=== PATIENT | female | born 1975 | race Caucasian/White ===

== ENCOUNTER → 2016-06-01 | Outpatient (CLI) | payer OTHER | LOC: FIMAGING 13:22 | DX: Z12.31 Encounter for screening mammogram for malignant neoplasm of breast (principal) | CPT/HCPCS: G0202 ==

== ENCOUNTER 2016-06-25 08:55 | Emergency (ER) | payer OTHER ==
--- NOTE | 2016-06-25 09:03 | UCPHY ---
H & P Patient Type: New Time Seen by Provider: 06/25/16 09:02 HPI/ROS: CHIEF COMPLAINT: Crampy abdominal pain, bloody diarrhea HISTORY OF PRESENT ILLNESS: The patient presents to the urgent care with complaints of crampy abdominal pain and bloody diarrhea. The patient's symptoms of diarrhea have been increasing over the past several days. She noticed blood her stool yesterday. She had a small amount blood in her stool today. The patient has been having generalized abdominal cramping with her bowel movements. She reports having diarrhea at every time she eats or drinks. The patient denies recent antibiotic use, travel outside the [place] or contact with other people who were sick with similar symptoms. The patient reports her abdominal pain and cramping is moderate in nature. She denies dysuria. She denies significant history of abdominal surgery or significant past medical history. REVIEW OF SYSTEMS: A comprehensive 10 point review of systems is otherwise negative aside from elements mentioned in the history of present illness. Source: Patient Exam Limitations: No limitations - Medical/Surgical History PMH: Past medical history: Noncontributory - Family History Significant Family History: No pertinent family hx - Social History Smoking Status: Never smoked - Physical Exam Exam: General Appearance: Alert, no distress Eyes: Pupils equal and round no pallor or injection ENT, Mouth: Mucous membranes moist Respiratory: There are no retractions, lungs are clear to auscultation Cardiovascular: Regular rate and rhythm Gastrointestinal: Tenderness to palpation in the right upper quadrant, normal bowel sounds, no peritoneal signs Neurological: A&O, normal motor function, normal sensory exam, normal cranial nerves Skin: Warm and dry, no rashes Musculoskeletal: Neck is supple nontender Extremities: symmetrical, full range of motion Constitutional: Initial Vital Signs Temperature (C) 37 C 06/25/16 09:01 Heart Rate 110 H 06/25/16 09:01 Respiratory Rate 16 06/25/16 09:01 Blood Pressure 109/75 06/25/16 09:01 O2 Sat (%) 100 06/25/16 09:01 O2 Delivery Mode Room Air Allergies/Adverse Reactions: No Known Allergies Allergy (Verified 06/25/16 09:01) Home Medications: Medication Instructions Recorded Levothyroxine 06/25/16 Medical Decision Making - Diagnostics Imaging Results: Imaging Impressions Abdomen Ultrasound 06/25/16 09:11 Impression: Normal right upper quadrant ultrasound. Findings discussed with Eric Sarmiento 06/25/2016 at 1002. ED Course/Re-evaluation: The patient presents to the ED with several days of diarrhea with questionable mild hematochezia. The patient is noted to have tenderness to palpation in the right upper quadrant. The patient has no evidence of an acute abdomen. The patient did have an IV established. She received a L of normal saline. Based upon her right upper quadrant tenderness, and ultrasound of the right upper quadrant was ordered. The patient's right upper quadrant ultrasound is within normal limits. The patient's laboratory studies are also unremarkable. We have obtained a stool specimen. The patient's stool will be sent for a GI pathogen PCR which should be available in the next 24 hours. I will withhold antibiotics pending the results of that analysis. The patient will be discharged home with instructions to use Imodium for diarrhea and Zofran as needed for nausea. She should return to the ED for markedly worsening pain or other concerns. Differential Diagnosis: Differential diagnosis considered includes cholecystitis, pancreatitis, gastroenteritis, dysentery - Data Points Laboratory Results: Laboratory Results 06/25/16 09:15 06/25/16 09:15 06/25/16 06/25/16 06/25/16 09:15 09:15 09:15 WBC 9.77 10^3/uL H 10^3/uL (3.80-9.50) RBC 5.27 10^6/uL 10^6/uL (4.18-5.33) Hgb 14.7 g/dL g/dL (12.6-16.3) Hct 42.6 % % (38.0-47.0) MCV 80.8 fL L fL (81.5-99.8) MCH 27.9 pg pg (27.9-34.1) MCHC 34.5 g/dL g/dL (32.4-36.7) RDW 12.8 % % (11.5-15.2) Plt Count 235 10^3/uL 10^3/uL (150-400) MPV 10.9 fL fL (8.7-11.7) Neut % (Auto) 84.3 % H % (39.3-74.2) Lymph % (Auto) 9.8 % L % (15.0-45.0) [place] % (Auto) 4.9 % % (4.5-13.0) Eos % (Auto) 0.5 % L % (0.6-7.6) Baso % (Auto) 0.2 % L % (0.3-1.7) Nucleat RBC Rel Count 0.0 % % (0.0-0.2) Absolute Neuts (auto) 8.23 10^3/uL H 10^3/uL (1.70-6.50) Absolute Lymphs (auto) 0.96 10^3/uL L 10^3/uL (1.00-3.00) Absolute Monos (auto) 0.48 10^3/uL 10^3/uL (0.30-0.80) Absolute Eos (auto) 0.05 10^3/uL 10^3/uL (0.03-0.40) Absolute Basos (auto) 0.02 10^3/uL 10^3/uL (0.02-0.10) Absolute Nucleated RBC 0.00 10^3/uL 10^3/uL (0-0.01) Immature Gran % 0.3 % % (0.0-1.1) Immature Gran # 0.03 10^3/uL 10^3/uL (0.00-0.10) Sodium 136 mEq/L mEq/L (134-144) Potassium 4.0 mEq/L mEq/L (3.5-5.2) Chloride 100 mEq/L mEq/L (97-110) Carbon Dioxide 18 mEq/l L mEq/l (22-31) Anion Gap 18 mEq/L H mEq/L (8-16) BUN 14 mg/dL mg/dL (7-23) Creatinine 0.6 mg/dL mg/dL (0.6-1.0) Estimated GFR > 60 Glucose 76 mg/dL mg/dL (70-100) Calcium 9.3 mg/dL mg/dL (8.5-10.4) Total Bilirubin 1.0 mg/dL mg/dL (0.1-1.4) Conjugated Bilirubin 0.1 mg/dL mg/dL (0.0-0.5) Unconjugated Bilirubin 0.9 mg/dL mg/dL (0.0-1.1) AST 20 IU/L IU/L (14-46) ALT 25 IU/L IU/L (9-52) Alkaline Phosphatase 71 IU/L IU/L (38-126) Total Protein 7.0 g/dL g/dL (6.3-8.2) Albumin 4.0 g/dL g/dL (3.5-5.0) Lipase 128.0 IU/L IU/L (23-300) Beta HCG, Qual NEGATIVE Medications Given: Discontinued Medications Sodium Chloride (Ns) 1,000 mls @ 0 mls/hr IV ONCE ONE PRN Reason: Wide Open Stop: 06/25/16 09:12 Last Admin: 06/25/16 09:15 Dose: 1,000 mls Departure - Departure Disposition: Home, Routine, Self-Care Clinical Impression: Diarrhea, Abdominal pain Condition: Good Instructions: Acute Diarrhea (ED) Additional Instructions: 1. Please use Imodium for diarrhea. 2. Zofran as needed for nausea. 3.Sometimes we are unable to diagnose an obvious cause of abdominal pain in the Emergency Department. Based upon our evaluation today, I believe your symptoms are most likely secondary to a viral intestinal infection. Because more serious conditions can be difficult to diagnose early in the course of their presentation, we ask that you return to the Emergency Department in 8-12 hours for a recheck if you are still having pain. This is necessary to exclude the development of a more serious condition such as appendicitis or other intra- abdominal emergency. In the event your pain markedly increases before that time or you develop intractable vomiting or fever return to the Emergency Department immediately. 4. Please contact the Urgent Care tomorrow to check the results of your stool test and see if antibiotics are indicated. The telephone number is . Referrals: Jazzmine Dasilva MD [Medical Doctor] - As per Instructions - PQRS PQRS Measurement: N/A
[2016-06-25] MEDS ORDERED: NS 1,000 ML IV ONE (09:11)
[2016-06-25 09:29] LABS: % IMMATURE GRANULYOCYTES 0.3 % (0.0-1.1); ABSOLUTE IMMATURE GRANULOCYTES 0.03 10^3/uL (0.00-0.10); ADD DIFF? NO; ADD MORPH? NO; ADD SCAN? NO; ATYPICAL LYMPHOCYTE FLAG 50 (0-99); FRAGMENT RBC FLAG 0 (0-99); HEMATOCRIT 42.6 % (38.0-47.0); HEMOGLOBIN 14.7 g/dL (12.6-16.3); LEFT SHIFT FLG 0 (0-99); LIPEMIA HEMOLYSIS FLAG 90 (0-99); MEAN CELL HEMOGLOBIN 27.9 pg (27.9-34.1); MEAN CELL HEMOGLOBIN CONCENTR. 34.5 g/dL (32.4-36.7); MEAN CELL VOLUME 80.8 fL (81.5-99.8); MEAN PLATELET VOLUME 10.9 fL (8.7-11.7); PLATELET CLUMPS FLAG 10 (0-99); PLATELET COUNT 235 10^3/uL (150-400); RED BLOOD CELL COUNT 5.27 10^6/uL (4.18-5.33); RED CELL DISTRIBUTION WIDTH 12.8 % (11.5-15.2)
[2016-06-25 09:43] LABS: ALANINE AMINOTRANSFERASE 25 IU/L (9-52); ALKALINE PHOSPHATASE 71 IU/L (38-126); ANION GAP 18 mEq/L (8-16); ASPARTATE AMINOTRANSFERASE 20 IU/L (14-46); BILIRUBIN-CONJUGATED 0.1 mg/dL (0.0-0.5); BILIRUBIN-UNCONJUGATED 0.9 mg/dL (0.0-1.1); CALCIUM 9.3 mg/dL (8.5-10.4); CARBON DIOXIDE 18 mEq/l (22-31); CHLORIDE 100 mEq/L (97-110); CREATININE 0.6 mg/dL (0.6-1.0); GLOMERULAR FILTRATION RATE > 60; GLUCOSE 76 mg/dL (70-100); SODIUM 136 mEq/L (134-144)
[2016-06-25 11:15] VITALS: BP 107/63; PULSE 87; RESP 15; TEMP 99; O2SAT 98
== END 2016-06-25 10:44 | disposition home or self-care (01) ==
LOC: CED 08:55
DX: R10.9 Unspecified abdominal pain (principal); R19.7 Diarrhea, unspecified; K92.1 Melena
CPT/HCPCS: 76705-PO; 80048-PO; 80076-PO; 83690-PO; 84703-PO; 85025-PO; 96360-PO; 99204-PO; G0463-PO

== ENCOUNTER 2016-06-26 12:11 | Observation (INO) | payer OTHER ==
[2016-06-26] MEDS ORDERED: ONDANSETRON 4 MG/2 ML VIAL IVP ONE ×2 (12:35→13:56)
[2016-06-26] MEDS ORDERED: NS 1,000 ML IV ONE ×3 (12:35→14:52)
[2016-06-26] MEDS ORDERED: METOCLOPRAMIDE 10 MG/2 ML VIAL IVP ONE (12:59)
--- NOTE | 2016-06-26 13:33 | UCPHY ---
H & P Patient Type: Established Chief Complaint Nursing Narrative: pt seen here for same yesterday, dx with + ecoli. nausea, vomiting and abd pain persist. "can not hold down water" per pt. Time Seen by Provider: 06/26/16 12:57 HPI/ROS: CHIEF COMPLAINT: Vomiting and diarrhea History by patient HISTORY OF PRESENT ILLNESS: 41-year-old woman who was seen yesterday for vomiting diarrhea and had positive E coli 157 stool culture today returns because of persistent nausea, vomiting and diarrhea. She says every time she tries to take any oral fluids she vomits. The diarrhea is bloody. She feels generally weak. She denies any fever. She has been unable to eat any solid food. She tried taking Zofran at home with minimal relief. She took a Zofran at 8:00 a.m. and then another 1 while she was here in the waiting room. REVIEW OF SYSTEMS: As in HPI, and all other systems reviewed and are negative Source: Patient, Family - Personal History LMP (Females 10-55): 15-21 Days Ago Current Tetanus/Diphtheria Vaccine: Yes Current Tetanus Diphtheria and Acellular Pertussis (TDAP): Yes Tetanus Vaccine Date: 2015 - Medical/Surgical History Hx Asthma: No Hx Chronic Respiratory Disease: No Hx Diabetes: No Hx Cardiac Disease: No Hx Renal Disease: No Hx Cirrhosis: No Hx Alcoholism: No Hx HIV/AIDS: No Hx Splenectomy or Spleen Trauma: No Other PMH: migraines, shoulder surgery - Family History Significant Family History: No pertinent family hx - Social History Smoking Status: Never smoked - Physical Exam Exam: General Appearance: Alert, uncomfortable. Eyes: Pupils equal and round no pallor or injection. ENT, Mouth: Mucous membranes moist. Respiratory: Normal, effort, There are no retractions, lungs are clear to auscultation. Cardiovascular: Regular rate and rhythm. Gastrointestinal: Abdomen is soft and nontender, no masses, bowel sounds normal. Neurological: Awake, alert and oriented x 3, no pronator drift, normal gait, no pronator drift Skin: Warm and dry, no rashes. Musculoskeletal: Neck is supple nontender. Extremities are symmetrical, full range of motion. Psychiatric: Patient has normal affect, there is no agitation. Constitutional: Initial Vital Signs Temperature (C) 36.6 C 06/26/16 12:21 Heart Rate 88 06/26/16 12:21 Respiratory Rate 16 06/26/16 12:21 Blood Pressure 117/82 H 06/26/16 12:21 O2 Sat (%) 98 06/26/16 12:21 O2 Delivery Mode Room Air Allergies/Adverse Reactions: No Known Allergies Allergy (Verified 06/25/16 09:01) Home Medications: Medication Instructions Recorded Levothyroxine 06/25/16 Ondansetron Odt [Zofran Odt] 4 mg PO Q4PRN PRN #20 tab 06/25/16 Medical Decision Making ED Course/Re-evaluation: 41-year-old woman with copious nausea vomiting nonbloody diarrhea with stool culture positive for E coli 157 returns with persistent symptoms and clinical evidence of significant dehydration. Patient had just taken a Zofran when he arrived she was given IV fluids and Reglan with minimal improvement. She attempted to drink some helen peggy but began to vomit again. She was therefore given an additional dose of Zofran and a 2nd L IV fluids. After this she was feeling much better however she remained persistently tachycardic. Labs are notable for elevated anion gap but normal renal function. CBC showed no evidence of thrombocytopenia or anemia. There is no evidence of hemolytic uremic syndrome at this time however patient would need ongoing monitoring for this. Because of her persistent tachycardia she was given 3rd L IV fluids as suspect she is significantly volume depleted. Despite the 3rd L of normal saline the patient remained tachycardic. Her blood pressure remained stable but she continued to feel lightheaded and dizzy. Given her significant fluid requirement and pathogens [place] of coli 157 at this point I think it is prudent to admit the patient for observation. I discussed the case with Dr. Mills the hospitalist at [facility], and the patient will be admitted to the [facility]. - Data Points Laboratory Results: Laboratory Results 06/26/16 12:45 06/26/16 12:45 06/26/16 06/26/16 12:45 12:45 WBC 13.07 10^3/uL H 10^3/uL (3.80-9.50) RBC 5.89 10^6/uL H 10^6/uL (4.18-5.33) Hgb 16.3 g/dL g/dL (12.6-16.3) Hct 47.8 % H % (38.0-47.0) MCV 81.2 fL L fL (81.5-99.8) MCH 27.7 pg L pg (27.9-34.1) MCHC 34.1 g/dL g/dL (32.4-36.7) RDW 13.0 % % (11.5-15.2) Plt Count 266 10^3/uL 10^3/uL (150-400) MPV 11.2 fL fL (8.7-11.7) Neut % (Auto) 78.7 % H % (39.3-74.2) Lymph % (Auto) 12.1 % L % (15.0-45.0) [place] % (Auto) 8.5 % % (4.5-13.0) Eos % (Auto) 0.2 % L % (0.6-7.6) Baso % (Auto) 0.2 % L % (0.3-1.7) Nucleat RBC Rel Count 0.0 % % (0.0-0.2) Absolute Neuts (auto) 10.28 10^3/uL H 10^3/uL (1.70-6.50) Absolute Lymphs (auto) 1.58 10^3/uL 10^3/uL (1.00-3.00) Absolute Monos (auto) 1.11 10^3/uL H 10^3/uL (0.30-0.80) Absolute Eos (auto) 0.03 10^3/uL 10^3/uL (0.03-0.40) Absolute Basos (auto) 0.03 10^3/uL 10^3/uL (0.02-0.10) Absolute Nucleated RBC 0.00 10^3/uL 10^3/uL (0-0.01) Immature Gran % 0.3 % % (0.0-1.1) Immature Gran # 0.04 10^3/uL 10^3/uL (0.00-0.10) Sodium 134 mEq/L mEq/L (134-144) Potassium 4.6 mEq/L mEq/L (3.5-5.2) Chloride 103 mEq/L mEq/L (97-110) Carbon Dioxide 16 mEq/l L mEq/l (22-31) Anion Gap 15 mEq/L mEq/L (8-16) BUN 13 mg/dL mg/dL (7-23) Creatinine 0.7 mg/dL mg/dL (0.6-1.0) Estimated GFR > 60 Glucose 77 mg/dL mg/dL (70-100) Calcium 8.9 mg/dL mg/dL (8.5-10.4) Medications Given: Discontinued Medications Sodium Chloride (Ns) 1,000 mls @ 0 mls/hr IV ONCE ONE PRN Reason: Wide Open Stop: 06/26/16 12:36 Last Admin: 06/26/16 12:45 Dose: 1,000 mls Sodium Chloride (Ns) 1,000 mls @ 0 mls/hr IV ONCE ONE PRN Reason: Wide Open Stop: 06/26/16 13:31 Last Admin: 06/26/16 13:37 Dose: 1,000 mls Sodium Chloride (Ns) 1,000 mls @ 0 mls/hr IV ONCE ONE PRN Reason: Wide Open Stop: 06/26/16 14:53 Last Admin: 06/26/16 15:00 Dose: 1,000 mls Metoclopramide HCl (Reglan Injection) 10 mg IVP EDNOW ONE Stop: 06/26/16 13:00 Last Admin: 06/26/16 13:11 Dose: 10 mg Ondansetron HCl (Zofran) 4 mg IVP EDNOW ONE Stop: 06/26/16 12:36 Last Admin: 06/26/16 13:10 Dose: Not Given Ondansetron HCl (Zofran) 4 mg IVP EDNOW ONE Stop: 06/26/16 13:31 Last Admin: 06/26/16 13:51 Dose: Not Given Ondansetron HCl (Zofran) 4 mg IVP EDNOW ONE Stop: 06/26/16 13:57 Last Admin: 06/26/16 13:57 Dose: 4 mg Departure - Departure Disposition: [facility] Clinical Impression: Diarrhea in adult patient, E coli serotype O157:H7 infection Condition: Fair Referrals: NONE *PRIMARY CARE P,. [Primary Care Provider] - As per Instructions - PQRS PQRS Measurement: NA
[2016-06-26] MEDS: ONDANSETRON 4 MG/2 ML VIAL IVP ONE ×2 (13:37→13:51)
[2016-06-26 13:40] LABS: % IMMATURE GRANULYOCYTES 0.3 % (0.0-1.1); ABSOLUTE IMMATURE GRANULOCYTES 0.04 10^3/uL (0.00-0.10); ADD DIFF? NO; ADD MORPH? NO; ADD SCAN? NO; ATYPICAL LYMPHOCYTE FLAG 70 (0-99); FRAGMENT RBC FLAG 0 (0-99); HEMATOCRIT 47.8 % (38.0-47.0); HEMOGLOBIN 16.3 g/dL (12.6-16.3); LEFT SHIFT FLG 0 (0-99); LIPEMIA HEMOLYSIS FLAG 90 (0-99); MEAN CELL HEMOGLOBIN 27.7 pg (27.9-34.1); MEAN CELL HEMOGLOBIN CONCENTR. 34.1 g/dL (32.4-36.7); MEAN CELL VOLUME 81.2 fL (81.5-99.8); MEAN PLATELET VOLUME 11.2 fL (8.7-11.7); PLATELET CLUMPS FLAG 10 (0-99); PLATELET COUNT 266 10^3/uL (150-400); RED BLOOD CELL COUNT 5.89 10^6/uL (4.18-5.33)
[2016-06-26 13:46] LABS: ANION GAP 15 mEq/L (8-16); CALCIUM 8.9 mg/dL (8.5-10.4); CARBON DIOXIDE 16 mEq/l (22-31); CHLORIDE 103 mEq/L (97-110); CREATININE 0.7 mg/dL (0.6-1.0); GLOMERULAR FILTRATION RATE > 60; GLUCOSE 77 mg/dL (70-100); POTASSIUM 4.6 mEq/L (3.5-5.2); SODIUM 134 mEq/L (134-144)
[2016-06-26 16:58] LABS: ALBUMIN 3.2 g/dL (3.5-5.0); BILIRUBIN,TOTAL 0.8 mg/dL (0.1-1.4); BILIRUBIN-CONJUGATED 0.2 mg/dL (0.0-0.5); BILIRUBIN-UNCONJUGATED 0.6 mg/dL (0.0-1.1); TOTAL PROTEIN 5.8 g/dL (6.3-8.2)
[2016-06-26] MEDS ORDERED: ONDANSETRON DISINTEGRATING 4 MG TAB PO PRN (18:05)
[2016-06-26] MEDS ORDERED: ONDANSETRON 4 MG/2 ML VIAL IVP PRN (18:05)
[2016-06-26] MEDS ORDERED: PROMETHAZINE HCL 25 MG TAB PO PRN (18:05)
[2016-06-26] MEDS ORDERED: ACETAMINOPHEN 325 MG TAB PO PRN (18:05)
--- NOTE | 2016-06-26 18:44 | PDGENHP ---
History and Physical - Chief Complaint diarrhea, dizziness - History of Present Illness 41 yo female with h/o hypothyroidism presents to urgent care with 4 days of frequent, bloody diarrhea. She was initially seen on day 3 of illness with hourly bloody diarrhea. She was treated with IVF's, a GI pathogen panel was sent, and she was discharged home. She was notified today with E coli 0157 results and it was advised she return to urgent care for re-evaluation. She continues to have bloody diarrhea every 60-90 minutes. No fevers. She is unable to tolerate po. Had a couple episodes of vomiting, but mostly nausea is preventing her from taking po. She does not eat beef. She ate at [employer] the day before onset of symptoms. She also eats a lot of vegetables and salad, but no other obvious source of transmission. No other ill persons in her family. She received 3L NS in urgent care and HR persisted in 110's with dizziness so she was sent to [facility] for admission and further management. History Information - Allergies/Home Medication List Allergies/Adverse Reactions: No Known Allergies Allergy (Verified 06/25/16 09:01) Home Medications: Levothyroxine [Synthroid 88 mcg (*)] 88 mcg PO DAILY 06/25/16 [Last Taken Unknown] Herbals/Supplements -Info Only 1 ea PO DAILY 06/26/16 [Last Taken Unknown] Multivitamins [Multivitamin (*)] 1 each PO DAILY 06/26/16 [Last Taken Unknown] I have personally reviewed and updated: family history, medical history, social history, surgical history - Past Medical History Additional medical history: hypothyroidism - Surgical History Reports: no pertinent surgical hx - Family History Positive for: non-pertinent - Social History Smoking Status: Never smoked Alcohol Use: Occasionally Drug Use: None Additional social history: Lives independently with her who is present at the bedside. Review of Systems ROS: 10pt was reviewed & negative except for what was stated in HPI & below Physical Exam Temp Pulse Resp BP Pulse Ox 36.3 C 97 20 105/64 97 06/26/16 17:20 06/26/16 17:20 06/26/16 17:20 06/26/16 17:20 06/26/16 17:20 Constitutional: no apparent distress Eyes: PERRL Ears, Nose, Mouth, Throat: dry mucous membranes Cardiovascular: regular rate and rhythym, no murmur, rub, or gallop Respiratory: no respiratory distress, no rales or rhonchi Gastrointestinal: normoactive bowel sounds, other (soft, nd, mild TTP without r/ r/g, +BS) Skin: warm Musculoskeletal: full muscle strength Neurologic: AAOx3 Psychiatric: interacting appropriately Lab Data & Imaging Review 06/26/16 12:45 06/26/16 12:45 WBC 13.07 10^3/uL (3.80-9.50) H 06/26/16 12:45 RBC 5.89 10^6/uL (4.18-5.33) H 06/26/16 12:45 Hgb 16.3 g/dL (12.6-16.3) 06/26/16 12:45 Hct 47.8 % (38.0-47.0) H 06/26/16 12:45 MCV 81.2 fL (81.5-99.8) L 06/26/16 12:45 MCH 27.7 pg (27.9-34.1) L 06/26/16 12:45 MCHC 34.1 g/dL (32.4-36.7) 06/26/16 12:45 RDW 13.0 % (11.5-15.2) 06/26/16 12:45 Plt Count 266 10^3/uL (150-400) 06/26/16 12:45 MPV 11.2 fL (8.7-11.7) 06/26/16 12:45 Neut % (Auto) 78.7 % (39.3-74.2) H 06/26/16 12:45 Lymph % (Auto) 12.1 % (15.0-45.0) L 06/26/16 12:45 [place] % (Auto) 8.5 % (4.5-13.0) 06/26/16 12:45 Eos % (Auto) 0.2 % (0.6-7.6) L 06/26/16 12:45 Baso % (Auto) 0.2 % (0.3-1.7) L 06/26/16 12:45 Nucleat RBC Rel Count 0.0 % (0.0-0.2) 06/26/16 12:45 Absolute Neuts (auto) 10.28 10^3/uL (1.70-6.50) H 06/26/16 12:45 Absolute Lymphs (auto) 1.58 10^3/uL (1.00-3.00) 06/26/16 12:45 Absolute Monos (auto) 1.11 10^3/uL (0.30-0.80) H 06/26/16 12:45 Absolute Eos (auto) 0.03 10^3/uL (0.03-0.40) 06/26/16 12:45 Absolute Basos (auto) 0.03 10^3/uL (0.02-0.10) 06/26/16 12:45 Absolute Nucleated RBC 0.00 10^3/uL (0-0.01) 06/26/16 12:45 Immature Gran % 0.3 % (0.0-1.1) 06/26/16 12:45 Immature Gran # 0.04 10^3/uL (0.00-0.10) 06/26/16 12:45 Sodium 134 mEq/L (134-144) 06/26/16 12:45 Potassium 4.6 mEq/L (3.5-5.2) 06/26/16 12:45 Chloride 103 mEq/L (97-110) 06/26/16 12:45 Carbon Dioxide 16 mEq/l (22-31) L 06/26/16 12:45 Anion Gap 15 mEq/L (8-16) 06/26/16 12:45 BUN 13 mg/dL (7-23) 06/26/16 12:45 Creatinine 0.7 mg/dL (0.6-1.0) 06/26/16 12:45 Estimated GFR > 60 06/26/16 12:45 Glucose 77 mg/dL (70-100) 06/26/16 12:45 Calcium 8.9 mg/dL (8.5-10.4) 06/26/16 12:45 Total Bilirubin 0.8 mg/dL (0.1-1.4) 06/26/16 13:45 Conjugated Bilirubin 0.2 mg/dL (0.0-0.5) 06/26/16 13:45 Unconjugated Bilirubin 0.6 mg/dL (0.0-1.1) 06/26/16 13:45 AST 17 IU/L (14-46) 06/26/16 13:45 ALT 26 IU/L (9-52) 06/26/16 13:45 Alkaline Phosphatase 60 IU/L (38-126) 06/26/16 13:45 Total Protein 5.8 g/dL (6.3-8.2) L 06/26/16 13:45 Albumin 3.2 g/dL (3.5-5.0) L 06/26/16 13:45 Assessment & Plan Assessment: Diarrhea secondary to E coli serotype O157:H7 - Pt presented with volume depletion and tachycardia, no hypotension. Having persistent, frequent bloody stools. No e/o HUS. Unclear source of transmission. Pt does not eat beef. Could have had a cross contamination source. I phoned the lab and they will notify the health department. Plan is for supportive care, clear liquids for now, anti-emetics, IVF's, advance diet as tolerated. Metabolic acidosis likely secondary to bicarb loss in setting of frequent diarrhea - s/p 3 L NS at [facility] [place]. Change to LR. Leukocytosis - deferring atbx, there may be a stress reaction or hemoconcentration component. Follow. Hypothyroidism - resume synthroid when able to take po. Full code Dispo - obs
[2016-06-26] MEDS: D5W LR 1,000 ML IV SCH (18:50)
[2016-06-26 19:30] VITALS: RESP 16
[2016-06-27] MEDS: D5W LR 1,000 ML IV SCH ×2 (00:57→07:59)
[2016-06-27 05:18] LABS: % IMMATURE GRANULYOCYTES 0.3 % (0.0-1.1); ABSOLUTE IMMATURE GRANULOCYTES 0.02 10^3/uL (0.00-0.10); ADD DIFF? NO; ADD MORPH? NO; ADD SCAN? YES; FRAGMENT RBC FLAG 0 (0-99); HEMATOCRIT 32.2 % (38.0-47.0); LEFT SHIFT FLG 0 (0-99); LIPEMIA HEMOLYSIS FLAG 90 (0-99); MEAN CELL HEMOGLOBIN 27.7 pg (27.9-34.1); MEAN CELL HEMOGLOBIN CONCENTR. 34.2 g/dL (32.4-36.7); MEAN CELL VOLUME 81.1 fL (81.5-99.8); MEAN PLATELET VOLUME 10.6 fL (8.7-11.7); PLATELET CLUMPS FLAG 0 (0-99); PLATELET COUNT 161 10^3/uL (150-400); RED BLOOD CELL COUNT 3.97 10^6/uL (4.18-5.33); RED CELL DISTRIBUTION WIDTH 13.1 % (11.5-15.2)
[2016-06-27 05:26] LABS: ATYPICAL LYMPHOCYTE FLAG 100 (0-99)
[2016-06-27 05:28] LABS: ANION GAP 0 mEq/L (8-16); CALCIUM 7.5 mg/dL (8.5-10.4); CARBON DIOXIDE 22 mEq/l (22-31); CHLORIDE 113 mEq/L (97-110); CREATININE 0.6 mg/dL (0.6-1.0); GLOMERULAR FILTRATION RATE > 60; GLUCOSE 128 mg/dL (70-100); POTASSIUM 3.5 mEq/L (3.5-5.2); SODIUM 135 mEq/L (134-144)
[2016-06-27 06:22] LABS: SCAN POSITIVE
[2016-06-27 06:28] LABS: PLATELET ESTIMATE ADEQUATE (ADEQ)
[2016-06-27 07:42] VITALS: BP 90/57; PULSE 88; TEMP 98; O2SAT 95
[2016-06-27] MEDS ORDERED: LEVOTHYROXINE 88 MCG TAB PO SCH (09:00)
[2016-06-27 10:46] LABS: IONIZED CALCIUM 1.15 MMOL/L (1.12-1.30)
[2016-06-27 12:00] LABS: HEMATOCRIT 32.8 % (38.0-47.0); HEMOGLOBIN 11.2 g/dL (12.6-16.3)
--- NOTE | 2016-06-27 12:07 | HOSPPROG ---
Hospitalist Progress Note Assessment/Plan: #Acute abd pain: due to E coli- Shiga toxin. Supportive care #Acute blood loss anemia: due to above. Asymptomatic #E coli-Shiga toxin infection #Metabolic acidosis: due to starvation ketosis, dehydration. Resolved #Leukocytosis: resolved #Hypothyroidism: LT4 #Disp: pt would like to go home. DC today Subjective: tolerated soft diet Objective: Vital Signs Temp Pulse Resp BP Pulse Ox 36.7 C 88 16 90/57 L 95 06/27/16 07:41 06/27/16 07:41 06/26/16 19:23 06/27/16 07:41 06/27/16 07:41 Laboratory Results 06/27/16 11:50 06/27/16 05:03 06/26/16 06/27/16 06/28/16 05:59 05:59 05:59 Intake Total 1122 Balance 1122 - Physical Exam Constitutional: no apparent distress Eyes: PERRL Ears, Nose, Mouth, Throat: moist mucous membranes, hearing normal Cardiovascular: regular rate and rhythym, no murmur, rub, or gallop Respiratory: no respiratory distress, no rales or rhonchi Gastrointestinal: normoactive bowel sounds, soft, non-tender abdomen, no palpable masses Genitourinary: no bladder fullness Skin: warm Musculoskeletal: full muscle strength Neurologic: AAOx3 Psychiatric: interacting appropriately ICD10 Worksheet Patient Problems: Problems Problem Status Onset Diarrhea in adult patient Acute E coli serotype O157:H7 infection Acute
--- NOTE | 2016-06-27 17:43 | GDS ---
[f rep st] DISCHARGE SUMMARY DISCHARGE DIAGNOSES: 1. Escherichia coli, shigatoxin-producing diarrheal infection. 2. Tachycardia. 3. Acute blood loss anemia. 4. Metabolic acidosis. 5. Acute abdominal pain. 6. Leukocytosis. 7. Hypothyroidism. HISTORY OF PRESENT ILLNESS: The patient is a pleasant 41-year-old female with history of hypothyroidism, presenting to urgent care with 4 days of frequent bloody diarrhea. She was seen on day 3 of her illness with hourly bloody diarrhea. She was treated at urgent care with IV fluids and a GI pathogen panel was sent off, and she was discharged home. She was notified the day of admission that she had E coli 0157, and it was advised that she return to urgent care for reevaluation. At that time, she was still having frequent bloody stools every 60-90 minutes. No fevers, but was unable to tolerate p.o. She has had a few episodes of nonbloody emesis. She had eaten at [employer] the day prior to admission, but does not eat meat. When she re-presented to the urgent care, she was tachycardic at 110 with dizziness, thus she was sent here to [facility] for further evaluation. HOSPITAL COURSE BY PROBLEM: 1. E coli 0157 shigatoxin-producing diarrhea: treated supportively since antibiotics can cause shedding of the endotoxin and subsequent HUS. Her diarrhea has minimized. The pain is nearly resolved and she has tolerated some soft foods. At this time, she would prefer to go home. 2. Acute blood loss anemia: Secondary to diarrheal illness. H/H today was 11/ 32, baseline of 16/47. 3. Tachycardia secondary to volume depletion. Resolved with fluids. 4. Metabolic acidosis: now resolved; due to starvation ketosis/dehydration. 5. Leukocytosis secondary to stress response. Again, no antibiotics with shigatoxin bacteria. 6. Hypothyroidism: Resume Synthroid. DISPOSITION: Patient is stable for discharge. RETURN PRECAUTIONS: Patient was advised to return if she has dizziness, significant bloody stools, or abdominal pain. /[id number]/MODL MTDD
== END 2016-06-27 16:06 | disposition home or self-care (01) ==
LOC: CED 12:11 → CEDHOLD 15:55 → F1N 17:17
PROVIDERS: ADMIT Hospitalist; ATTEND Hospitalist
DX: A09 Infectious gastroenteritis and colitis, unspecified (principal); B96.21 Shiga toxin-producing Escherichia coli [E. coli] [STEC] O157 as the cause of diseases classified elsewhere; R00.0 Tachycardia, unspecified; D62 Acute posthemorrhagic anemia; D72.829 Elevated white blood cell count, unspecified; E03.9 Hypothyroidism, unspecified
CPT/HCPCS: G0378 ×2; 80048-PO; 80076-PO; 85025-PO; 96361-PO; 96374-PO; 96375-PO; G0463-PO; J2405; J2765